=== PATIENT | male | born 1965 | race Two or more races ===

== ENCOUNTER 2018-05-13 23:01 | Emergency (ER) | payer OTHER ==
[~2018-05-13] VITALS: Ht 180.3 cm; Wt 85.7 kg
[2018-05-13] MEDS ORDERED: AMOX1TAB5 (23:09)
[2018-05-13] MEDS ORDERED: SYNTHROID175 MCG (23:09)
[2018-05-13] MEDS ORDERED: LIPITOR20 MG (23:10)
== END 2018-05-14 09:21 ==
LOC: ER 23:01
DX: N39.0 Urinary tract infection, site not specified (principal); A41.51 Sepsis due to Escherichia coli [E. coli]

== ENCOUNTER 2018-05-14 17:20 | Inpatient (IN) | payer OTHER ==
[~2018-05-14] VITALS: Ht 180.3 cm; Wt 85.7 kg
[~2018-05-14 17:20] MED LIST: AMOX1TAB5; LIPITOR20 MG; SYNTHROID175 MCG
== END 2018-05-19 11:45 | disposition home or self-care (01) | DRG 690 ==
LOC: SEC-K 17:20 → SURG 17:20
PROVIDERS: ADMIT Urology
DX: N39.0 Urinary tract infection, site not specified (principal); N41.0 Acute prostatitis; B96.29 Other Escherichia coli [E. coli] as the cause of diseases classified elsewhere; E03.8 Other specified hypothyroidism; E78.00 Pure hypercholesterolemia, unspecified; N40.0 Benign prostatic hyperplasia without lower urinary tract symptoms; Z87.891 Personal history of nicotine dependence